=== PATIENT | male | born 1960 | race Hispanic/Latino ===

== ENCOUNTER 2022-02-25 09:09 | Outpatient (CLI) | payer OTHER ==
[2022-02-25] MEDS ORDERED: Iopamidol 370 76% 100 ML VIAL ONE (15:10)
== END 2022-02-25 09:10 | disposition home or self-care (01) ==
LOC: CSHCT 09:09
PROVIDERS: ATTEND Internal Medicine Hematology & Oncology
DX: C22.0 Liver cell carcinoma (principal); J43.9 Emphysema, unspecified; R91.8 Other nonspecific abnormal finding of lung field; R16.1 Splenomegaly, not elsewhere classified; K74.69 Other cirrhosis of liver
CPT/HCPCS: 71260; Q9967

== ENCOUNTER 2022-04-18 08:50 | Outpatient (CLI) | payer OTHER ==
[2022-04-18] MEDS ORDERED: Iopamidol 300 61% 100 ML VIAL FS ONE (12:58)
== END 2022-04-18 08:51 | disposition home or self-care (01) ==
LOC: CSHCT 08:50
PROVIDERS: ATTEND Internal Medicine Hematology & Oncology
DX: C22.9 Malignant neoplasm of liver, not specified as primary or secondary (principal); R91.8 Other nonspecific abnormal finding of lung field; I82.531 Chronic embolism and thrombosis of right popliteal vein; K74.60 Unspecified cirrhosis of liver; R18.8 Other ascites
CPT/HCPCS: 71260; 74177; Q9967

== ENCOUNTER 2022-07-16 16:47 | Inpatient (IN) | payer OTHER ==
[2022-07-16] MEDS ORDERED: Pantoprazole 40 MG VIAL ONE ×2 (17:46→20:59)
[2022-07-16 18:04] LABS: INR-International Normal Ratio 0.9; PTT 23.7 sec (22.0-33.0); Prothrombin Time 10.3 sec (9.5-12.1)
[2022-07-16 18:06] LABS: ALT (SGPT) 70 U/L (8-55); AST (SGOT) 67 U/L (5-34); Alkaline Phosphatase 199 U/L (40-110); Anion Gap 10 mmol/L (10-20); BUN (Urea Nitrogen) 23 mg/dL (8.4-25.7); Bilirubin, Total 0.4 mg/dL (0.2-1.2); Calc. Creatinine Clearance 0 mL/min (70-130); Calcium 8.3 mg/dL (7.8-10.44); Carbon Dioxide 23 mmol/L (23-31); Chloride 111 mmol/L (98-107); Estimated GFR 89; Glucose 91 mg/dL (80-115); Potassium 4.4 mmol/L (3.5-5.1); Sodium 140 mmol/L (136-145)
[2022-07-16 18:10] LABS: #Eosinphils 0.1 10x3/uL (0.0-0.5); #Monocytes 0.7 10x3/uL (0.0-1.1); #Neutrophils 2.8 10x3/uL (1.5-8.4); %Basophils 0.7 % (0.0-2.0); %Eosinophils 1.8 % (0.0-6.0); %Lymphocytes 35.7 % (18.0-47.0); %Monocytes 12.1 % (0.0-10.0); %Neutrophils 49.5 % (40.0-75.0); Hemoglobin 6.8 g/dL (13.5-17.5); Mean Corpuscular HGB CONC 33.3 g/dL (32.0-36.0); Mean Corpuscular Hemoglobin 30.5 pg (27.0-33.0); Mean Corpuscular Volume 91.5 fl (81.2-95.1); Mean Platelet Volume 9.2 fl (7.4-10.4); Platelet Count 169 10x3/uL (150-450); RBC Distribution Width 15.3 % (11.5-14.5); Red Blood Cell (RBC) Count 2.23 10x6/uL (4.32-5.72); White Blood Cell (WBC) Count 5.7 10x3/uL (3.5-10.5)
[2022-07-16] MEDS ORDERED: Morphine 4 MG/ML VIAL ONE (18:50)
[2022-07-16] MEDS ORDERED: Acetaminophen 325 MG TAB PO PRN (19:49)
[2022-07-16] MEDS ORDERED: Ondansetron PF 4 MG/2 ML Vial IVP PRN (19:49)
[2022-07-16] MEDS ORDERED: Pantoprazole 80 MG in Sodium Chloride 0.9% 100 ML IVPB SCH (20:00)
[2022-07-16 22:23] VITALS: BMI 25.9
[2022-07-16] MEDS: cefTRIAXone\\ROCEPHIN 1 GM in Sodium Chloride 0.9% 100 ML IVPB SCH (22:45)
[2022-07-16] MEDS: Dextrose 5 %-0.45 % NaCl 1,000 ML IV SCH (22:46)
[2022-07-16] MEDS: Nicotine 14 MG PATCH TD SCH (23:02)
[2022-07-16] MEDS: Octreotide Acetate 1,250 MCG in Sodium Chloride 0.9% 250 ML 250 ML IVPB SCH (23:03)
[2022-07-17] MEDS: Morphine 4 MG/ML VIAL SLOW IVP PRN (01:45)
[2022-07-17 01:54] LABS: #Eosinphils 0.1 10x3/uL (0.0-0.5); #Monocytes 0.6 10x3/uL (0.0-1.1); #Neutrophils 2.3 10x3/uL (1.5-8.4); %Basophils 0.6 % (0.0-2.0); %Eosinophils 1.9 % (0.0-6.0); %Lymphocytes 41.8 % (18.0-47.0); %Monocytes 11.3 % (0.0-10.0); %Neutrophils 44.2 % (40.0-75.0); Hemoglobin 9.4 g/dL (13.5-17.5); Mean Corpuscular HGB CONC 34.1 g/dL (32.0-36.0); Mean Corpuscular Volume 91.1 fl (81.2-95.1); Platelet Count 148 10x3/uL (150-450); RBC Distribution Width 14.3 % (11.5-14.5); Red Blood Cell (RBC) Count 3.03 10x6/uL (4.32-5.72); White Blood Cell (WBC) Count 5.2 10x3/uL (3.5-10.5)
[2022-07-17 02:01] LABS: Lactic Acid 1.2 mmol/L (0.5-2.2)
[2022-07-17 02:09] LABS: SARS-CoV-2 NAA Rapid Test Not Detected (NotDetected)
[2022-07-17 05:28] LABS: #Eosinphils 0.1 10x3/uL (0.0-0.5); #Monocytes 0.4 10x3/uL (0.0-1.1); #Neutrophils 2.1 10x3/uL (1.5-8.4); %Basophils 0.8 % (0.0-2.0); %Lymphocytes 33.8 % (18.0-47.0); %Monocytes 11.1 % (0.0-10.0); Hemoglobin 9.5 g/dL (13.5-17.5); Mean Corpuscular HGB CONC 33.7 g/dL (32.0-36.0); Mean Corpuscular Hemoglobin 30.8 pg (27.0-33.0); Mean Corpuscular Volume 91.6 fl (81.2-95.1); Mean Platelet Volume 9.2 fl (7.4-10.4); Platelet Count 135 10x3/uL (150-450); RBC Distribution Width 14.3 % (11.5-14.5); Red Blood Cell (RBC) Count 3.08 10x6/uL (4.32-5.72)
[2022-07-17 05:50] LABS: Anion Gap 10 mmol/L (10-20); BUN (Urea Nitrogen) 16 mg/dL (8.4-25.7); Calc. Creatinine Clearance 93 mL/min (70-130); Calcium 7.6 mg/dL (7.8-10.44); Carbon Dioxide 20 mmol/L (23-31); Chloride 110 mmol/L (98-107); Estimated GFR 102; Glucose 116 mg/dL (80-115); Potassium 4.4 mmol/L (3.5-5.1); Sodium 136 mmol/L (136-145)
[2022-07-17 05:55] LABS: Lactic Acid 1.8 mmol/L (0.5-2.2)
[2022-07-17] MEDS: Dextrose 5 %-0.45 % NaCl 1,000 ML IV SCH ×3 (08:27→20:20)
[2022-07-17] MEDS ORDERED: FLU VACC QS2022-23(6MOS UP)/PF 60 MCG/0.5 ML SYRINGE IM ONE (09:00)
[2022-07-17 11:01] LABS: #Basophils 0.1 10x3/uL (0.0-0.2); #Eosinphils 0.1 10x3/uL (0.0-0.5); #Monocytes 0.5 10x3/uL (0.0-1.1); #Neutrophils 2.7 10x3/uL (1.5-8.4); %Eosinophils 1.8 % (0.0-6.0); %Lymphocytes 29.9 % (18.0-47.0); %Monocytes 10.9 % (0.0-10.0); Hemoglobin 9.7 g/dL (13.5-17.5); Mean Corpuscular HGB CONC 34.3 g/dL (32.0-36.0); Mean Corpuscular Hemoglobin 31.4 pg (27.0-33.0); Mean Corpuscular Volume 91.6 fl (81.2-95.1); Mean Platelet Volume 9.1 fl (7.4-10.4); Platelet Count 151 10x3/uL (150-450); RBC Distribution Width 14.2 % (11.5-14.5); Red Blood Cell (RBC) Count 3.09 10x6/uL (4.32-5.72); White Blood Cell (WBC) Count 4.9 10x3/uL (3.5-10.5)
[2022-07-17 19:21] LABS: #Eosinphils 0.1 10x3/uL (0.0-0.5); #Monocytes 0.5 10x3/uL (0.0-1.1); #Neutrophils 3.4 10x3/uL (1.5-8.4); %Basophils 0.7 % (0.0-2.0); %Eosinophils 2.6 % (0.0-6.0); %Lymphocytes 24.5 % (18.0-47.0); %Monocytes 9.7 % (0.0-10.0); %Neutrophils 62.3 % (40.0-75.0); Hemoglobin 10.3 g/dL (13.5-17.5); Mean Corpuscular HGB CONC 34.6 g/dL (32.0-36.0); Mean Corpuscular Hemoglobin 31.5 pg (27.0-33.0); Mean Corpuscular Volume 91.1 fl (81.2-95.1); Mean Platelet Volume 9.2 fl (7.4-10.4); Platelet Count 157 10x3/uL (150-450); Red Blood Cell (RBC) Count 3.27 10x6/uL (4.32-5.72); White Blood Cell (WBC) Count 5.5 10x3/uL (3.5-10.5)
[2022-07-17] MEDS: cefTRIAXone\\ROCEPHIN 1 GM in Sodium Chloride 0.9% 100 ML IVPB SCH (20:16)
[2022-07-17] MEDS: Nicotine 14 MG PATCH TD SCH (20:43)
[2022-07-18] MEDS: Octreotide Acetate 1,250 MCG in Sodium Chloride 0.9% 250 ML 250 ML IVPB SCH (00:29)
[2022-07-18] MEDS: Dextrose 5 %-0.45 % NaCl 1,000 ML IV SCH (05:55)
[2022-07-18] MEDS ORDERED: PROPOFOL 40 ML ONE (08:07)
[2022-07-18] MEDS: Morphine 4 MG/ML VIAL SLOW IVP PRN (10:28)
[2022-07-18] MEDS ORDERED: Carvedilol 6.25 MG TAB PO SCH (15:00)
[2022-07-18] MEDS ORDERED: hydrALAZINE 20 MG/ML VIAL ONE (17:05)
[2022-07-18] MEDS ORDERED: hydrALAZINE 20 MG/ML VIAL SLOW IVP SCH (17:30)
[2022-07-18 18:01] VITALS: BP 205/100; TEMP 98.3
[2022-07-19] MEDS ORDERED: Carvedilol 6.25 MG TAB PO SCH (08:00)
== END 2022-07-18 19:20 | disposition home or self-care (01) | DRG 432 ==
LOC: CSHERS 16:47 → CSHTELE 20:31
PROVIDERS: ADMIT Student in an Organized Health Care Education/Training Program; ATTEND Hospitalist
PROC: 30233N1 Transfusion of Nonautologous Red Blood Cells into Peripheral Vein, Percutaneous Approach (ICD-10-PCS; 2022-07-16)
PROC: 06L38CZ Occlusion of Esophageal Vein with Extraluminal Device, Via Natural or Artificial Opening Endoscopic (ICD-10-PCS; principal; 2022-07-18)
DX: K70.30 Alcoholic cirrhosis of liver without ascites (principal); I81 Portal vein thrombosis; I85.11 Secondary esophageal varices with bleeding; C22.0 Liver cell carcinoma; D62 Acute posthemorrhagic anemia; E87.20 Acidosis, unspecified; K76.6 Portal hypertension; I10 Essential (primary) hypertension; F17.210 Nicotine dependence, cigarettes, uncomplicated; B18.2 Chronic viral hepatitis C; K31.89 Other diseases of stomach and duodenum; Z20.822 Contact with and (suspected) exposure to COVID-19; Z79.01 Long term (current) use of anticoagulants; Z79.899 Other long term (current) drug therapy; Z86.711 Personal history of pulmonary embolism
CPT/HCPCS: 36430; 80048; 80053; 82140; 83605; 85025; 85610; 85730; 86850; 86900; 86901; 93005; 93970; 96374; 96375; 96376; C9113; J0360; J0696; J2270; J2354; J2704; J3490; J7042; J7050; P9016; U0002

== ENCOUNTER 2022-10-11 09:27 | Outpatient (CLI) | payer OTHER ==
[2022-10-11] MEDS ORDERED: Iopamidol 300 61% 100 ML VIAL FS ONE (11:18)
== END 2022-10-11 09:28 | disposition home or self-care (01) ==
LOC: CSHCT 09:27
PROVIDERS: ATTEND Internal Medicine Hematology & Oncology
DX: C22.0 Liver cell carcinoma (principal); R91.1 Solitary pulmonary nodule; R16.1 Splenomegaly, not elsewhere classified
CPT/HCPCS: 71260; 74177; Q9967

== ENCOUNTER 2023-10-10 10:28 | Outpatient (CLI) | payer OTHER | END 2023-10-10 10:29 | disposition home or self-care (01) | LOC: CSHCT 10:28 | PROVIDERS: ATTEND Internal Medicine Hematology & Oncology | DX: C22.0 Liver cell carcinoma (principal); R91.1 Solitary pulmonary nodule; R91.8 Other nonspecific abnormal finding of lung field; K74.60 Unspecified cirrhosis of liver; K76.9 Liver disease, unspecified; R16.1 Splenomegaly, not elsewhere classified; K63.89 Other specified diseases of intestine; R18.8 Other ascites; R59.0 Localized enlarged lymph nodes | CPT/HCPCS: 71260; 74177; 82565 ==

== ENCOUNTER 2024-03-05 13:31 | Outpatient (CLI) | payer MEDICARE ==
[~2024-03-05 13:31] MED LIST: Iopamidol 300 61% 100 ML VIAL FS ONE
== END 2024-03-05 13:32 | disposition home or self-care (01) ==
LOC: CSHCT 13:31
PROVIDERS: ATTEND Internal Medicine Hematology & Oncology
DX: C22.0 Liver cell carcinoma (principal); J84.10 Pulmonary fibrosis, unspecified; K74.60 Unspecified cirrhosis of liver; K76.9 Liver disease, unspecified; I81 Portal vein thrombosis; K63.9 Disease of intestine, unspecified; R59.0 Localized enlarged lymph nodes
CPT/HCPCS: 71260; 74177; 82565; Q9967

== ENCOUNTER 2024-05-11 09:33 | Outpatient (CLI) | payer MEDICARE | END 2024-05-11 09:34 | disposition home or self-care (01) | LOC: CSHCT 09:33 | PROVIDERS: ATTEND Internal Medicine Hematology & Oncology | DX: C22.0 Liver cell carcinoma (principal); J98.4 Other disorders of lung; K76.9 Liver disease, unspecified; I81 Portal vein thrombosis; R16.1 Splenomegaly, not elsewhere classified; R59.0 Localized enlarged lymph nodes | CPT/HCPCS: 71260; 74177 ==

== ENCOUNTER 2024-08-12 09:18 | Outpatient (CLI) | payer MEDICARE | END 2024-08-12 09:19 | disposition home or self-care (01) | LOC: CSHCT 09:18 | PROVIDERS: ATTEND Internal Medicine Hematology & Oncology | DX: C22.0 Liver cell carcinoma (principal); R59.0 Localized enlarged lymph nodes | CPT/HCPCS: 71260; 74177 ==

== ENCOUNTER 2025-04-20 14:33 | Outpatient (CLI) | payer OTHER | END 2025-04-20 14:34 | disposition home or self-care (01) | LOC: CSHMRI 14:33 | PROVIDERS: ATTEND Specialist | DX: M47.26 Other spondylosis with radiculopathy, lumbar region (principal); R18.8 Other ascites; M48.54XD Collapsed vertebra, not elsewhere classified, thoracic region, subsequent encounter for fracture with routine healing; M48.061 Spinal stenosis, lumbar region without neurogenic claudication; M43.16 Spondylolisthesis, lumbar region | CPT/HCPCS: 72148 ==